=== PATIENT | female | born 1955 | race Caucasian/White ===

== ENCOUNTER → 2017-08-14 | Outpatient (CLI) | payer BC ==
--- NOTE | 2017-08-14 12:27 | RADIOLOGY REPORT (SQ) ---
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 TECHNIQUE: Multiplanar imaging includes noncontrasted T1, T2, FLAIR, diffusion with ADC map and post gadolinium contrast T1 sequences. Images stored on PACS. Additional thin section T2 and pre/post contrast T1 axial and coronal images through the temporal bon es were obtained. CONTRAST TYPE AND DOSE: 10 mL Multihance. RENAL FUNCTION: GFR > 60. LIMITATIONS: None. FINDINGS: On a thin section T2 weighted images through the temporal bones, the vestibular aqueducts are very difficult to identify. Aqueduct stir stenotic. This could correlate with the history of Me niere's disease. The remainder of the thin section imaging through the internal auditory canals and inner ear structur es are unremarkable. No masses or enhancement along the internal auditory canals or inner ear struct ures. No middle ear effusion. No gross mastoid air cell fluid. ANATOMY: No brain parenchymal developmental anomalies. Normal vascular flow voids. Pituitary fossa no rmal. CSF SPACES: Normal in size and contour. No hemorrhage. CEREBRUM: Sulci and gyri normal in size and contour. Normal white matter signal on FLAIR imaging. No evidence of hemorrhage, mass, or extraaxial fluid collection. No abnormal enhancement post contrast. POSTERIOR FOSSA: No signal alteration. No hemorrhage. No edema, masses, or mass effect. Internal mani tory canals, cerebellopontine angles, mastoids normal. No abnormal enhancement post contrast. DIFFUSION IMAGING: Negative for acute or subacute infarction. ORBITS: No masses. Globes normal. PARANASAL SINUSES: No fluid levels. Mucosa normal. OTHER: No other significant finding. IMPRESSION: VESTIBULAR AQUEDUCTS DIFFICULT TO IDENTIFY ON THE THIN SECTION T2 WEIGHTED IMAGES THROUG H TEMPORAL BONES. 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 OTHERWISE, NORMAL MRI OF THE BRAIN WITHOUT AND WITH INTRAVENOUS GADOLINIUM CONTRAST. EVIDENCE OF ACUTE STROKE: NO. TECHNICAL DOCUMENTATION: JOB ID: [id number] [place]- All Rights Reserved
== END ==
LOC: RAD 10:09
PROVIDERS: ATTEND Physician Assistant
DX: H81.09 Meniere's disease, unspecified ear (principal)
CPT/HCPCS: 82565; 70553; A9577